=== PATIENT | male | born 1970 | race African-American/Black ===

== ENCOUNTER 2019-07-05 23:33 | Emergency (ER) | payer SELFPAY ==
[~2019-07-05] VITALS: Ht 177.8 cm; Wt 68.0 kg
[2019-07-05] MEDS ORDERED: ALBUTEROL 6.7GM HFA INHALER ORI ONE (23:45)
[2019-07-06] MEDS ORDERED: IPRATROPIUM/ALBUTEROL 0.5-3(2.5)MG/3ML NEB HHN ONE (01:15)
[2019-07-06 02:05] VITALS: BP 135/66
== END 2019-07-06 02:06 | disposition home or self-care (01) ==
LOC: ER 23:46
DX: J44.1 Chronic obstructive pulmonary disease with (acute) exacerbation (principal)
CPT/HCPCS: 71045; 99284; Z7610